=== PATIENT | male | born 1950 | race Caucasian/White ===

== ENCOUNTER → 2020-05-11 | Outpatient (CLI) | payer MEDICARE, BC | END | disposition home or self-care (01) | LOC: CFH 08:54 | PROVIDERS: ATTEND Nurse Practitioner Family | DX: I77.811 Abdominal aortic ectasia (principal); I70.8 Atherosclerosis of other arteries; Z87.891 Personal history of nicotine dependence | CPT/HCPCS: 76706 ==

== ENCOUNTER 2020-06-18 10:58 | Emergency (ER) | payer MEDICARE, BC ==
[~2020-06-18] VITALS: Ht 162.6 cm; Wt 66.0 kg
[2020-06-18 11:48] LABS: BASOPHILS # (AUTO) 0.04 x10^3/uL (0-0.1); BASOPHILS % (AUTO) 1 % (0-1); EOSINOPHILS # (AUTO) 0.08 x10^3/uL (0-0.4); EOSINOPHILS % (AUTO) 1 % (1-7); LYMPHOCYTES # (AUTO) 1.43 x10^3/uL (1-3.4); LYMPHOCYTES % (AUTO) 21 % (22-44); MD NO; MEAN CORPUSCULAR HEMOGLOBIN 31.2 pg (27.5-34.5); MEAN CORPUSCULAR HGB CONC 32.7 g/dL (33.2-36.2); MEAN CORPUSCULAR VOLUME 95.2 fL (81-97); MEAN PLATELET VOLUME 8.1 fL (7.4-10.4); MONOCYTES # (AUTO) 0.56 x10^3/uL (0.2-0.8); MONOCYTES % (AUTO) 8 % (2-9); NEUTROPHILS % (AUTO) 69 % (42-75); PLATELET COUNT 213 x10^3/uL (130-400); RED BLOOD COUNT 4.96 x10^6/uL (4.38-5.82); RED CELL DISTRIBUTION WIDTH 13.9 % (9.4-14.8)
[2020-06-18 12:02] LABS: ALBUMIN 3.6 g/dL (3.4-5.0); CALCIUM 9.4 mg/dL (8.5-10.1); CHLORIDE 103 mmol/L (98-107)
[2020-06-18 12:07] LABS: ALANINE AMINOTRANSFERASE 33 U/L (12-78); ALKALINE PHOSPHATASE 56 U/L (45-117); ANION GAP 4 mmol/L (5-15); BILIRUBIN,TOTAL 0.6 mg/dL (0.2-1.0); CREATININE 0.87 mg/dL (0.7-1.3); TOTAL PROTEIN 7.1 g/dL (6.4-8.2)
--- NOTE | 2020-06-18 12:09 | NUR ---
URINE COLLECTED/SENT TO LAB. VSS/UPDATED IN COMPUTER. WARM BLANKET PROVIDED, CALL LIGHT WITHIN REACH.
[2020-06-18 12:10] VITALS: BP 172/92
[2020-06-18 12:26] LABS: MICROSCOPIC NOT IND
--- NOTE | 2020-06-18 12:38 | NUR ---
ALL RESULTS BACK, PT FOR RECHECK.
== END 2020-06-18 14:10 | disposition home or self-care (01) ==
LOC: ED 11:33
DX: E16.2 Hypoglycemia, unspecified (principal); R53.83 Other fatigue; I10 Essential (primary) hypertension
CPT/HCPCS: 36415; 80053; 81003; 82962; 85025; 99283